=== PATIENT | male | born 1960 | race Caucasian/White ===

== ENCOUNTER 2020-04-07 11:06 | Emergency (ER) | payer OTHER, SELFPAY ==
[2020-04-07 11:12] VITALS: BP 143/90; PULSE 70; RESP 18; TEMP 36.8; O2SAT 100
[2020-04-07] MEDS: diphenhydrAMINE HCl INJ 50 MG/ML VIAL 25 MG IV PUSH (11:18)
[2020-04-07] MEDS: methylPREDNISolone SOD SUCC 125 MG VIAL IV PUSH (11:18)
[2020-04-07] MEDS: FAMOTIDINE 20 MG/2 ML VIAL IV PUSH (11:18)
[2020-04-07 11:20] VITALS: BP 133/102; PULSE 63; RESP 12; O2SAT 98
[2020-04-07 11:48] VITALS: BP 132/57; PULSE 58; RESP 14; O2SAT 100
--- NOTE | 2020-04-07 12:09 | ED.ALLEREA ---
HPI - Allergic Reaction General Chief complaint: Allergic Reaction Stated complaint: Allergic Reaction Time Seen by Provider: 04/07/20 11:25 Source: patient Mode of arrival: ambulatory Limitations: no limitations History of Present Illness HPI narrative: This is a 59-year-old male that presents the emergency department for possible allergic reaction. Reports he was stung by a bunch of ground bees on his legs. Reports itching and burning to the area. About 30 minutes later he started to feel short of breath. Also reports he felt like his throat was swelling. He took Benadryl with minimal relief so reported to the ER. Denies fever or chest pain. Related Data Home Medications Medication Instructions Recorded Confirmed levothyroxine 04/07/20 Allergies Allergy/AdvReac Type Severity Reaction Status Date / Time No Known Allergies Allergy Verified 04/07/20 11:16 Review of Systems Review of Systems: Narrative: CONSTITUTIONAL: Denies fever CARDIOVASCULAR: Denies chest pain RESPIRATORY: Reports dyspnea. GASTROINTESTINAL: Denies abdominal pain or vomiting SKIN: Reports rash and itching. All systems reviewed & are unremarkable except as noted in HPI and below PMFSH Past Medical History Medical History (Updated 04/07/20 @ 13:16 by Dahlia Mondragon PA-C) History of hyperlipidemia History of hypothyroidism Family History Family History (Updated 03/20/16 @ 23:21 by DOCTOR UNKNOWN) Mother Patient's mother is in good health Father Patient's father is in good health Social History Social History Smoking status: Never smoker Second hand tobacco smoke exposure: No Alcohol intake: never Gender identity (if verbalized by the patient): Male Exam Narrative: Exam Narrative: GENERAL: Well-appearing, well-nourished, and in no acute distress. HEAD: Normocephalic, atraumatic. EYES: EOMI. ENT: Mucous membranes moist. Oropharynx without tonsillar hypertrophy exudate or other lesions. No facial or tongue swelling NECK: Supple. No adenopathy or masses. CHEST: Clear to auscultation. No respiratory distress. No wheezes rales or rhonchi HEART: Regular rate and rhythm. No murmur heard. Normal peripheral pulses. EXTREMITIES: Normal range of motion. No edema. SKIN: Warm, dry, no rash. NEURO: No focal deficits. Alert and oriented x3. PSYCH: Normal mood and affect Course Vital Signs Vital signs: Vital Signs Temperature 98.3 F 04/07/20 11:12 Pulse Rate 70 04/07/20 11:12 Respiratory Rate 18 04/07/20 11:12 Blood Pressure 143/90 H 04/07/20 11:12 Pulse Oximetry 100 04/07/20 11:12 Temperature 98.3 F 04/07/20 11:12 Pulse Rate 57 L 04/07/20 13:08 Respiratory Rate 13 04/07/20 13:08 Blood Pressure 128/90 04/07/20 13:08 Pulse Oximetry 100 04/07/20 13:08 MDM - Allergic Reaction MDM Narrative Medical decision making narrative: Patient presents to the emergency department for possible allergic reaction to bee stings. Sustained bee stings on his legs. Reports about 30 to 45 minutes later he started to feel short of breath and like his throat was swelling. He had taken a Benadryl with little relief which prompted him to be seen. While in the ED oxygen saturation has remained normal on room air. Lungs are clear. Blood pressure is stable. No facial or mouth swelling. Patient given Benadryl, Pepcid and methylprednisolone with relief. Patient is stable and felt appropriate for further outpatient evaluation. He was given warnings to return to the ER Critical Care Time Critical Care Time Critical Care Time: No Discharge Plan Discharge Clinical Impression: Allergic reaction Qualifiers: Encounter type: initial encounter Qualified Code(s): T78.40XA - Allergy, unspecified, initial encounter Patient Disposition: Home, Self-Care Condition: Stable Instructions: General Allergic Reaction (ED) Additional Instructions: Return to the emergency department if you experience feve
[2020-04-07 13:08] VITALS: BP 128/90; PULSE 57; RESP 13; O2SAT 100
[2020-04-07 13:20] VITALS: BP 121/81; PULSE 60; RESP 14; O2SAT 100
== END 2020-04-07 13:26 | disposition home or self-care (01) ==
PROVIDERS: Emergency Provider Emergency Medicine; PCP Internal Medicine
DX: T63.441A Toxic effect of venom of bees, accidental (unintentional), initial encounter (principal); E03.9 Hypothyroidism, unspecified; E78.5 Hyperlipidemia, unspecified
CPT/HCPCS: 96374; 96375; 99284; J1200; J2930

== ENCOUNTER 2022-06-11 07:51 | Emergency (ER) | payer OTHER, SELFPAY ==
--- NOTE | ~2022-06-11 | CT_ITS ---
EXAMINATION: CT abdomen pelvis w con INDICATION: Abdominal pain TECHNIQUE: Computed tomographic images of the abdomen and pelvis were obtained after the administrati on of 100 cc of Omnipaque 350 intravenous contrast. The dose-length product (DLP) was 330.95 mGy-cm. Automated exposure control and iterative reconstruction technique were employed. COMPARISON: 09/15/2013 FINDINGS: The lung bases are clear. The heart size is normal. Cysts of the liver measure up to 10 mm. The spleen, pancreas, gallbladder, and adrenal glands are normal. There is a 4 mm nonobstructing sto ne of the right kidney. The left kidney is unremarkable. No pathologically enlarged abdominal or pelv ic lymph nodes are identified. There is no free intraperitoneal gas or evidence of bowel obstruction. The appendix is normal. A moderate volume of colonic stool is present. There is formed stool in nond istended loops of small bowel, consistent with slow transit. There is a tiny umbilical hernia contain ing fat. IMPRESSION: 1. Constipation. Reviewed, dictated and finalized at location B. IMPRESSION: 1. Constipation.
[2022-06-11 08:06] VITALS: BP 130/88; PULSE 73; RESP 18; TEMP 36.5; O2SAT 100
--- NOTE | 2022-06-11 08:23 | ED.ABDPAIN ---
HPI - Abdominal Pain General Chief Complaint: Abdominal Pain Stated Complaint: abd pain Time Seen by Provider: 06/11/22 08:23 Source: patient Mode of arrival: ambulatory Limitations: no limitations History of Present Illness HPI narrative: Patient drove himself to the emergency room, complaining of intermittent mid abdominal pain with intermittent radiation to the back started 3 to 4 months ago. He denies any fever, chills, nausea, vomiting, diarrhea, trouble urinating. Patient denies any history of abdominal surgery. Related Data Allergies Allergy/AdvReac Type Severity Reaction Status Date / Time amoxicillin Allergy Mild Hives Verified 06/11/22 08:09 Review of Systems Review of Systems: All systems reviewed & are unremarkable except as noted in HPI and below PMFSH Past Medical History Medical History Hearing loss History of hyperlipidemia History of hypothyroidism Lymph node disorder Thyroid disease Surgical History Surgical History History of tonsillectomy Family History Family History Mother Patient's mother is in good health Father Patient's father is in good health Social History Social History Smoking status: Never smoker Second hand tobacco smoke exposure: No Alcohol intake: never Gender identity (if verbalized by the patient): Male Exam Narrative: General appearance: Well-developed, well-nourished Skin: Normal color Head: Normocephalic, nontraumatic Eyes: Clear conjunctiva ENT: Oropharynx normal, ears normal, nose normal Neck: Supple, nontender Chest and respiratory: Airway patent, no respiratory distress, no accessory muscle use Heart: Regular rate/rhythm Abdomen: Soft, nontender, no organomegaly, quiet bowel sounds Vascular: Normal peripheral pulses, normal capillary refill. Musculoskeletal: Normal range of motion, nontender back Neurologic: Alert and oriented ?3, HEMODIALYSIS PATIENT CARE SPECIALIST is normal as tested, no gross motor deficit Course Course Emergency Course: Physical examination and work-up today did not show any significant abnormality except constipation. Patient will be okay to be discharged home on MiraLAX to follow-up with his family physician or a care attendant as needed Vital Signs Vital signs: Vital Signs Temperature 36.5 C 06/11/22 08:06 Pulse Rate 73 06/11/22 08:06 Respiratory Rate 18 06/11/22 08:06 Blood Pressure 130/88 06/11/22 08:06 Pulse Oximetry 100 06/11/22 08:06 Oxygen Delivery Room Air 06/11/22 08:06 Temperature 36.5 C 06/11/22 08:06 Pulse Rate 73 06/11/22 08:06 Respiratory Rate 18 06/11/22 08:06 Blood Pressure 130/88 06/11/22 08:06 Pulse Oximetry 100 06/11/22 08:06 Oxygen Delivery Room Air 06/11/22 08:06 MDM - Abdominal Pain Differential Diagnosis Differential diagnosis: Likely abdominal pain, constipation, diverticulitis and pancreatitis Lab Data Result diagrams: 06/11/22 08:15 06/11/22 08:15 Labs: Lab Results 06/11/22 06/11/22 Range/Units 08:15 08:15 WBC Pending RBC Pending Hgb Pending Hct Pending MCV Pending MCH Pending MCHC Pending RDW Pending Plt Count Pending MPV Pending Immature Gran % (Auto) Pending Neut % (Auto) Pending Lymph % (Auto) Pending Nobles % (Auto) Pending Eos % (Auto) Pending Baso % (Auto) Pending Lymph # (Auto) Pending Nobles # (Auto) Pending Eos # (Auto) Pending Baso # (Auto) Pending Abs Im
[2022-06-11 08:25] LABS: Basophils Percent Auto 0.6 % (0.2-1.2); Eosinophils Absolute Auto 0.3 K/mm3 (0-0.3); Eosinophils Percent Auto 6.6 % (0-4.4); Hematocrit 45.5 % (42.0-52.0); Hemoglobin 14.4 g/dL (14.0-18.0); Lymphocytes Percent Auto 34.8 % (18.3-44.2); Mean Corpuscular HGB Conc 31.6 g/dl (32-36); Mean Corpuscular Hemoglobin 27.9 pg (26-34); Mean Platelet Volume 9.6 fl (7.4-10.4); Monocytes Absolute Auto 0.5 K/mm3 (0.1-0.6); Monocytes Percent Auto 10.5 % (2.6-8.5); Neutrophils Absolute Auto 2.3 K/mm3 (1.3-6.7); Neutrophils Percent Auto 47.5 % (45.5-73.1); Platelet Count Result 246 k/mm3 (150-375); Red Blood Count 5.17 M/mm3 (4.6-6.20); Red Cell Distribution Width 13.2 % (11.5-14.5); White Blood Count 4.9 K/mm3 (4.5-10.0)
[2022-06-11 08:40] LABS: Alanine Aminotransferase 19 U/L (6-50); Albumin Level 4.5 g/dL (3.5-5.1); Alkaline Phosphatase 51 U/L (38-126); Anion Gap 10 mmol/L (8-16); Aspartate Amino Transferase 30 U/L (17-59); Bilirubin,Total 0.4 mg/dL (0.2-1.3); Blood Urea Nitrogen 32 mg/dL (9-20); Calcium 9.4 mg/dL (8.4-10.2); Carbon Dioxide 23 mmol/L (22-30); Chloride 106 mmol/L (98-107); Estimated CRCL calculation 49 ml/min; Estimated Glomerular Filt Rate 56; Glucose 101 mg/dL (65-110); Lipase 79 U/L (23-300); Potassium 4.5 mmol/L (3.4-5.0); Sodium 139 mmol/L (137-145)
[2022-06-11] MEDS: SODIUM CHLORIDE 0.9% IV 1,000 ML 999 ML IV CONT (08:43)
[2022-06-11 09:00] LABS: Add Urine Microscopic? NO; Appearance Urine Clear (Clear); Bilirubin Urine Negative (Negative); Blood Urine Negative (Negative); Color Urine Yellow (Yellow); Glucose Urine UA Negative (Negative); Ketones Urine Negative (Negative); Leukocyte Esterase Ur Negative LEU/UL (Negative); Nitrate Urine Negative (Negative); Protein Urine Negative (Negative); Specific Grav Ur 1.018 (1.001-1.035); Urobilinogen Urine Negative mg/dL (<2.0)
[2022-06-11 09:56] VITALS: BP 136/98; O2SAT 99
== END 2022-06-11 09:57 | disposition home or self-care (01) ==
PROVIDERS: Emergency Provider Emergency Medicine; PCP Internal Medicine
DX: K59.00 Constipation, unspecified (principal); E78.5 Hyperlipidemia, unspecified; E03.9 Hypothyroidism, unspecified
CPT/HCPCS: 36415; 74177; 80053; 81003; 83690; 85025; 96360; 99284; J7030; Q9967

== ENCOUNTER 2025-04-06 07:13 | Day surgery (SDC) | payer MEDICARE, OTHER, SELFPAY ==
[2025-03-26 14:41] VITALS: BMI 23.5
[2025-04-06 12:34] VITALS: BP 121/87; PULSE 58; RESP 18; TEMP 36.1; O2SAT 100; BMI 24.6
[2025-04-06] MEDS: LACTATED RINGERS 1,000 ML 150 ML IV CONT (12:43)
[2025-04-06] MEDS: SIMETHICONE ORAL SUSPENSION 20 MG/0.3 ML 30 ML BOTTLE 1.8 ML PO (12:44)
--- NOTE | 2025-04-06 13:26 | WPDANESEPPF ---
Anes - Initial Pre Proc Eval Procedure: Operation Date: 04/06/25 14:00 Proposed Procedures p Esophagogastroduodenoscopy EGD - Jesus Mckeon MD Date/Time: 04/06/25 13:26 Surgeon: Jesus Mckeon MD Pre Op Diagnosis: Other specified cough Patient Data Age: 64 Gender: M Height: 1.7 m Weight: 71.4 kg Last Vital Signs Temp 97 F L 04/06/25 12:34 Pulse 58 L 04/06/25 12:34 Resp 18 04/06/25 12:34 BP 121/87 04/06/25 12:34 Pulse Ox 100 04/06/25 12:34 O2 Del Method Room Air 04/06/25 12:34 Allergies Allergy/AdvReac Type Severity Reaction Status Date / Time amoxicillin Allergy Mild Hives Verified 04/06/25 12:33 Home Medications ?Medication ?Instructions ?Recorded ?Confirmed ?Type albuterol sulfate 90 mcg/actuation 2 inh inhalation Q4H PRN shortness 09/14/24 03/26/25 Rx aerosol inhaler (Ventolin HFA) of breath or wheezing #8.5 grams levothyroxine 50 mcg tablet See Rx Instructions .Route 12/14/24 04/06/25 Rx .COMPLEX #90 tabs levothyroxine 50 mcg tablet 50 mcg PO DAILY #14 tabs 12/14/24 04/06/25 Rx (Synthroid) Patient hx anesthesia problems: none Family hx anesthesia problems: none Results Review: All pre-operative results and documents have been reviewed as part of the pre-operative evaluation. [facility] Past Medical History Medical History BMI 24.0-24.9, adult Rash Pure hypercholesterolemia, unspecified Flu-like symptoms Dietary counseling and surveillance (08/30/15) Cough Thyroid disease Lymph node disorder Hearing loss History of hyperlipidemia History of hypothyroidism Surgical History Surgical History History of tonsillectomy Family History Family History Mother Father Patient's father is in good health Sibling No problems noted. 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 Healthy, active w treadmill, wts, no cp or sob. Informed Consent: The patient's anesthetic plan and its attendant risks and benefits were discussed with the patient/family/POA. Questions were solicited and answers provided to the satisfaction of the patient/family/POA.
--- NOTE | 2025-04-06 14:00 | PM.IMHP ---
H&P: HPI History of Present Illness Date/Time: 04/06/25 14:00 Chief Complaint: Dysphagia-GERD Narrative: the patient has been suffering from GERD for several years, never treated constantly, only taken occasional PPIs and sometimes [place]. In addition, since July 2024 he started experiencing intermittent dysphagia especially to solid food. This is associated with frequent hoarseness. Review of Systems Review of Systems: All systems reviewed & are unremarkable except as noted in HPI and below PMFSH Past Medical History Medical History BMI 24.0-24.9, adult Rash Pure hypercholesterolemia, unspecified Flu-like symptoms Dietary counseling and surveillance (08/30/15) Cough Thyroid disease Lymph node disorder Hearing loss History of hyperlipidemia History of hypothyroidism Surgical History Surgical History History of tonsillectomy Family History Family History Mother Father Patient's father is in good health Sibling No problems noted. 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 Gender identity (if verbalized by the patient): Male Spiritual care concerns: No Meds Home Medications and Allergies Home Medications ?Medication ?Instructions ?Recorded ?Confirmed ?Type albuterol sulfate 90 mcg/actuation 2 inh inhalation Q4H PRN shortness 09/14/24 03/26/25 Rx aerosol inhaler (Ventolin HFA) of breath or wheezing #8.5 grams levothyroxine 50 mcg tablet See Rx Instructions .Route 12/14/24 04/06/25 Rx .COMPLEX #90 tabs levothyroxine 50 mcg tablet 50 mcg PO DAILY #14 tabs 12/14/24 04/06/25 Rx (Synthroid) Allergies Allergy/AdvReac Type Severity Reaction Status Date / Time amoxicillin Allergy Mild Hives Verified 04/06/25 12:33 Vital Signs Vital Signs - 24 hr 04/06/25 12:34 Temperature 97 F L Pulse Rate 58 L Respiratory Rate 18 Blood Pressure 121/87 Pulse Oximetry 100 Oxygen Delivery Room Air Exam Const: General: cooperative and healthy appearing Resp: Effort & Inspection: normal respiratory effort and able to speak in complete sentences Auscultation: clear to auscultation bilaterally Cardio: Rate: regular rate Rhythm: regular rhythm GI: Inspection: normal to inspection GI Palp: No No hepatosplenomegaly present Auscultation: normal bowel sounds Rectal Exam: deferred Skin: General skin exam: normal color Psych: Appearance: grossly normal Mental Status: mental status grossly normal Assessment and Plan Assessment and plan (1) Intermittent dysphagia: Code(s): R13.19 - Other dysphagia Status: Acute Assessment and Plan: The patient is deemed a good candidate for the procedure. Consent signed. Will proceed.
--- NOTE | 2025-04-06 14:13 | S_PTH ---
PATIENT: Trevor Suarez LOC: [facility] U#:[id number] AGE/SX: 64/M ROOM: RE04/06/[address]: Jesus Mckeon MD : 1960 BED: DIS: 04/06/2025 SPEC #: [id number] RECD: 04/09/25 08:27 STATUS: CRISTINA REAnuel #: [id number] MARLENE: 04/06/25 14:[address]: Jesus Mckeon DEPT: [facility] Surgical RECD BY: Amee Stewart ENTERED: 04/09/25 08:28 SP TYPE: Surgical OTHR DR: Rafa Whitaker, Tissues: A - Gastric Biopsy B - Gastric Biopsy C - Esophageal Biopsy Procedures: Hematoxylin and Eosin Stain Gross and Microscopic Level 4 H.Pylori
[2025-04-06 14:15] VITALS: BP 105/66; PULSE 55; RESP 13; O2SAT 100
[2025-04-06 14:25] VITALS: BP 109/68; PULSE 51; RESP 15; O2SAT 100
[2025-04-06 14:35] VITALS: BP 107/73; PULSE 52; RESP 16; O2SAT 100
== END 2025-04-06 14:42 | disposition home or self-care (01) ==
PROVIDERS: PCP Internal Medicine; Referring Provider Internal Medicine; Visit Provider Internal Medicine Gastroenterology
PROC: 0DJ08ZZ Inspection of Upper Intestinal Tract, Via Natural or Artificial Opening Endoscopic (ICD-10-PCS; CPT 43239; principal; 2025-04-06 14:00)
DX: K21.00 Gastro-esophageal reflux disease with esophagitis, without bleeding (principal); K29.50 Unspecified chronic gastritis without bleeding; B96.81 Helicobacter pylori [H. pylori] as the cause of diseases classified elsewhere; E03.9 Hypothyroidism, unspecified; E78.00 Pure hypercholesterolemia, unspecified; Z79.51 Long term (current) use of inhaled steroids; Z98.890 Other specified postprocedural states
CPT/HCPCS: 43239; 88305; 88342; J2003; J2704; J7120

== ENCOUNTER 2025-07-24 08:32 | Outpatient (CLI) | payer MEDICARE, OTHER, SELFPAY ==
--- OUTSIDE RECORDS SUMMARY | 2025-07-24 08:19 | XMS_ITS | Clinical Summary ---
Author Organization [facility] Address [address] [place] [address] Care Team Providers Care Butadiene Converter Utility Operator Name Role Phone Segundo Knox Primary Care Provider [phone] Source Comments [facility] [employer] [facility],non-owned Affiliates and Associated Physician Practices is amultiple site organization consisting of ambulatory clinics and hospital sitesin [place], [place] and [place]. This disclosure is being madepursuant to the Care Everywhere program and may not contain all information available regarding this patient. Last updated 18.[facility] Allergies Active Allergy Reactions Criticality Noted Date Comments Penicillins Rash Medium 09/23/2022 Medications * Be aware that medications may not be up to date on this document. Alwaysverify current medications with the patient. levothyroxine (Synthroid) 50 MCG tablet Take 1 (one) tablet by mouth daily before breakfast Active Immunizations Immunization Administration Dates Next Due TDAP (7yrs+) 06/10/2017 Social History Tobacco Use Types Packs/Day Years Used Date Smoking Tobacco: Never Passive Smoke Exposure: Never Smokeless Tobacco: Never Tobacco Cessation:Counseling Given: Not Answered Alcohol Use Standard Drinks/Week Comments Never 0 (1 standard drink = 0.6 oz pur e alcohol) Sex and Gender Information Value Date Recorded Sex Assigned at Not on file Legal Sex Male 11:31 AM CDT Gender Identity Not on file Sexual Orientation Not on file Last Filed Vital Signs Vital Sign Reading Time Taken Comments Blood Pressure 126/81 09/23/2022 11:39 AM BUSINESS PROCESS COORDINATOR Pulse 71 09/23/2022 11:39 AM BUSINESS PROCESS COORDINATOR Temperature 36.7 C (98 F) 09/23/2022 11:39 AM BUSINESS PROCESS COORDINATOR Respiratory Rate - - Oxygen Saturation - - Inhaled Oxygen Concentration - - Weight 75.3 kg (166 lb) 09/23/2022 11:39 AM BUSINESS PROCESS COORDINATOR Height 170.2 cm (5' 7) 09/23/2022 11:39 AM BUSINESS PROCESS COORDINATOR Body Mass Index 26 09/23/2022 11:39 AM BUSINESS PROCESS COORDINATOR Plan of Treatment Health Maintenance Due Date Last Done Comments COLOGUARD (AGES 45-75) - COL ON CA SCREENING 1960 COLON MONITORING 1959 COLONOSCOPY - COLON CA SCREENING 1959 CT COLONOGRAPHY - COLON CA SCREENING 1960 Colorectal Cancer Screening 1960 FIT - COLON CA SCREENING 1959 FLEX SIG - COLON CA SCREENING 1959 LIPID TESTING 1960 MEDICARE AWV 12 MONTHS 1960 HEPATITIS C SCREENING 07/03/1977 PNEUMOCOCCAL VACCINE 50+ (1 of 1 - PCV) 2009 ZOSTER VACCINE (1 of 2) 2009 SCREENING FOR DIABETES 09/23/2022 DEPRESSION SCREENING 08/23/2024 COVID-19 VACCINE (1 - 2024-2 6 season) 2025 INFLUENZA VACCINE (#1) 2025 DTAP/TDAP/TD VACCINES (2 - T d or Tdap) 06/10/2027 06/10/2017 Respiratory Syncytial Virus (RSV) Vaccine Pt: or over 60 yrs (1 - 1-dose 75+ series) 2034 HEPATITIS B VACCINE Aged Out No longe r eligible based on patient's age to complete this topic HIB VACCINE Aged Out No longer eligi ble based on patient's age to complete this topic HPV VACCINE Aged Out No longer eligi ble based on patient's age to complete this topic MENINGOCOCCAL (Group B) VACC INE SHARED DECISION-MAKING Aged Out No longer eligibl e based on patient's age to complete this topic MENINGOCOCCAL GROUPS A/C/Y/W VACCINE Aged Out No longer eligible b ased on patient's age to complete this topic Insurance [facility] MEDICARE [facility] RISK SELF PAY NO INSURANCE Member Subscriber Plan / Payer (Ef fective for All Dates) Name:Houston Kunz Member ID:Not on file Relation to Subscriber:Not on file Name:HOUSTON KUNZ Subscriber ID:Not on file (Home) Address: [address] [place] [id number] Payer ID:Not on file Group ID:Not on file Type:Self Pay Address: [place], [place] Care Teams Butadiene Converter Utility Operator Relationship Specialty Start Date End Date Segundo Knox DO [address] [place] [address] PCP - General Internal Medicine 06/10/17
== END 2025-07-24 08:33 | disposition home or self-care (01) ==
PROVIDERS: PCP Internal Medicine; Visit Provider Internal Medicine Gastroenterology
DX: A04.8 Other specified bacterial intestinal infections (principal)
CPT/HCPCS: 83013